=== PATIENT | female | born 1985 | race Caucasian/White ===

== ENCOUNTER 2017-01-30 11:04 | Outpatient (CLI) | payer OTHER ==
[2017-01-30 11:38] VITALS: BMI 29.5
== END 2017-01-30 11:32 | disposition home or self-care (01) ==
LOC: FBCOUT 11:04 → FBC 11:05 → FBCOUT 11:32
PROVIDERS: ATTEND Family Medicine
DX: O48.0 Post-term pregnancy (principal); Z3A.00 Weeks of gestation of pregnancy not specified

== ENCOUNTER 2017-01-31 01:45 | Inpatient (IN) | payer OTHER ==
[2017-01-31] MEDS ORDERED: OXYTOCIN IN LR 500 ML IV ONE ×2 (02:02→02:40)
[2017-01-31] MEDS ORDERED: IV START KIT ONE (02:08)
[2017-01-31] MEDS: LACTATED RINGERS 1,000 ML IV PRN ×2 (02:15→02:55)
[2017-01-31] MEDS ORDERED: CEFAZOLIN SODIUM 2 GRAM DUPLEX 50 ML IV ONE (02:29)
[2017-01-31 02:34] LABS: HEMATOCRIT 33.6 % (37.0-47.0); HEMOGLOBIN 10.9 gm/l (12.0-16.0); MEAN CELL VOLUME 77.6 fl (81.0-99.0); MEAN CORPUSCULAR HEMOGLOBIN 25.2 pg (27.0-31.0); MEAN CORPUSCULAR HGB CONC 32.4 g/dl (33.0-37.0); RED CELL DISTRIBUTION WIDTH 14.7 % (11.5-14.5)
[2017-01-31] MEDS ORDERED: MINERAL OIL 25 ML BOT ONE (02:39)
[2017-01-31] MEDS ORDERED: LIDOCAINE 1% (PRES FREE) 30 ML VIAL ONE (02:39)
[2017-01-31] MEDS ORDERED: OXYTOCIN 10 UNITS/ML VIAL ONE (02:39)
[2017-01-31] MEDS ORDERED: LIDOCAINE Viscous 2% 15 ML UDCUP ONE (02:39)
[2017-01-31] MEDS ORDERED: PUMP TUBING ONE (02:40)
[2017-01-31] MEDS ORDERED: EPIDURAL PUMP SET ONE (02:46)
[2017-01-31] MEDS ORDERED: FENTANYL/ROPIVACAINE EPIDURAL 250 ML EP ONE (02:47)
[2017-01-31] MEDS ORDERED: CEFAZOLIN SODIUM 2 GRAM DUPLEX 2 G in Premix (D5W) 50 ml 1 EACH IV ONE (03:00)
[2017-01-31] MEDS: FENTANYL/ROPIVACAINE EPIDURAL 250 ML EP SCH (03:12)
[2017-01-31] MEDS ORDERED: EPIDURAL PROCEDURE TRAY ONE (03:24)
[2017-01-31] MEDS ORDERED: ROPIVACAINE 0.5% 30 ML VIAL ONE (03:24)
[2017-01-31] MEDS ORDERED: SODIUM CHLORIDE 0.9% 500 ML IV PRN (03:45)
[2017-01-31] MEDS ORDERED: DIPHENHYDRAMINE HCL 50 MG/1 ML VIAL IV PRN (03:45)
[2017-01-31] MEDS ORDERED: METOCLOPRAMIDE HCL 5 MG/ML 2ML VIAL IV PRN (03:45)
[2017-01-31] MEDS ORDERED: NALBUPHINE HCL 20 MG/ML AMP IV PRN (03:45)
[2017-01-31] MEDS ORDERED: ONDANSETRON 4 MG/2ML 2 ML VIAL IV PRN (03:45)
[2017-01-31] MEDS ORDERED: NALOXONE HCL 0.4 MG/ML VIAL IV PRN (03:45)
[2017-01-31] MEDS ORDERED: EPHEDRINE SULFATE 50 MG/ML 1ML VIAL IV PRN (03:45)
[2017-01-31] MEDS ORDERED: LACTATED RINGERS 500 ML IV PRN (03:45)
[2017-01-31 03:49] VITALS: BMI 29.2
[2017-01-31] MEDS ORDERED: LIDOCAINE 1% (PRES FREE) 30 ML VIAL SUB-Q ONE (03:49)
[2017-01-31] MEDS: LACTATED RINGERS 1,000 ML IV SCH (04:06)
--- NOTE | 2017-01-31 04:31 | PCMAN ---
OB Admission Note - History : 3 Term: 2 : 0 Abortions (S&E): 0 Livin Gestational Age (weeks): 40 Days (#/7): 3 Admit Cervical Dilation:: 4.5 Admit Cervical Effacement (%):: 100 Admit Station:: -2 Admit Presentaton:: vertex Membrane Status: Intact Rupture (Date): 01/31/17 Rupture (Time): 04:17 Membranes Comment:: light mec Labor Onset (Date): 01/31/17 Labor Onset (Time): 01:15 Contractions: Yes Contraction Frequency:: 2-4 Heart Rate:: 125 Status:: category 2, mild decels w ctx EFW:: 8 Summary of Course:: uncomplicated - Labs Blood Type: B (+) positive Hct/Hgb:: 33.6/10.9 Rubella Status: Immune GBS Status: Positive Abnormal Labs: None - Physical Exam General: Afebrile, No Acute Distress Psych/Mental Status: Mood/Affect Appropriate Neurological: Grossly Intact, Alert, Oriented x 4, Normal Gait, Normal Speech, Cranial Nerves 3-12 Intact HEENT: Atraumatic, PERRLA, EOMI Lungs: Clear to Auscultation Bilaterally Cardiovascular: Regular Rate and Rhythm, No Murmur Abdomen: Normal Bowel Sounds Genitourinary: Normal Female Genitalia Extremities: Full ROM, No Edema Skin: Normal Color, No Rash - Problems (1) Post term over 40 weeks Status: Acute Code: O48.0Assessment/Plan: Active labor, expect (2) Depression affecting , antepartum Status: Acute Code: O99.340Assessment/Plan: stable on SSRI (3) Anemia affecting in third trimester Status: Acute Code: O99.013Assessment/Plan: Continue Iron following delivery
--- NOTE | 2017-01-31 06:35 | PCMDEL ---
Delivery Note - Labor 1st stage (hr/min):: 4 hr/38 min 2nd stage (hr/min):: 1 hr/21 min 3rd stage (hr/min):: 5 min Total (hr/min):: 6 hr/ 4 min Pushed (hr/min):: 1 hr/ 21 min - Delivery Delivery (Date): 01/31/17 Delivery (Time): 05:53 Gender: Male Presentation: Cephalic Position: OA Umbilical Cord: 3 Vessel Delayed Cord Clamping:: 2-3 min 1 Minute Total: 9 5 Minute Total: 9 Placenta:: intact EBL:: 350 ml Perineum:: 2nd degree perineal laceration Suture:: 2-0 chromic Anesthesia/Meds:: Epidural plus local for repair Length ROM:: 1 hr/36 min Comments:: Baby asynclitic accounting for long 2nd stage in multip, otherwise beautiful, normal delivery
[2017-01-31] MEDS ORDERED: BENZOCAINE/MENTHOL 60 APPLIC/BOT TP PRN (07:00)
[2017-01-31] MEDS ORDERED: LANOLIN 50 APPLIC/7G TUBE TP PRN (07:00)
[2017-01-31] MEDS: IBUPROFEN 800 MG TABLET PO SCH ×3 (07:58→22:08)
[2017-01-31] MEDS: DOCUSATE SODIUM 100 MG CAPSULE PO SCH ×2 (07:58→14:06)
[2017-01-31] MEDS ORDERED: CEFAZOLIN SODIUM 1 GRAM PREMIX 1 G in Premix (D5W) 50 ml 1 EACH IV SCH (11:00)
[2017-01-31] MEDS: ACETAMINOPHEN 325 MG TABLET PO PRN ×3 (11:44→22:08)
[2017-01-31] MEDS: OXYCODONE HCL 5 MG TABLET PO PRN ×3 (11:44→19:56)
[2017-02-01] MEDS: OXYCODONE HCL 5 MG TABLET PO PRN ×3 (00:31→09:54)
[2017-02-01] MEDS: ACETAMINOPHEN 325 MG TABLET PO PRN ×2 (03:00→09:54)
[2017-02-01] MEDS: IBUPROFEN 800 MG TABLET PO SCH ×4 (05:32→18:19)
[2017-02-01 07:00] LABS: HEMATOCRIT 26.6 % (37.0-47.0); HEMOGLOBIN 8.6 gm/l (12.0-16.0)
[2017-02-01] MEDS: DOCUSATE SODIUM 100 MG CAPSULE PO SCH ×2 (09:54→12:18)
--- NOTE | 2017-02-01 10:00 | PDOC44 ---
- Subjective Day: 1 Reports Pain Tolerable, Reports , Reports Lochia Light, Reports Tolerating Regular Diet, Denies Nausea, Denies Vomiting - Objective Temp Pulse Resp BP Pulse Ox 97.6 F 70 14 111/67 02/01/17 07:30 02/01/17 07:30 02/01/17 07:30 02/01/17 07:30 Lab Results 02/01/17 06:15 Hgb 8.6 L D Hct 26.6 L Current Medications Generic Name Dose Route Start Last Admin Trade Name Freq PRN Reason Stop Dose Admin Acetaminophen 325 - 650 mg 01/31/17 07:00 02/01/17 09:54 Tylenol PO 650 mg Q4H PRN Administration Pain (Mild) Benzocaine/Menthol 1 applic 01/31/17 07:00 01/31/17 08:32 Dermoplast TP 1 bot PRN PRN Administration Patient Comfort Docusate Sodium 100 mg 01/31/17 09:00 02/01/17 09:54 Colace PO 100 mg DAILY MARIA E Administration Emollient Ointment 1 applic 01/31/17 07:00 [id number] TP PRN PRN sore nipples Ropivacaine/Fentanyl/NS 250 mls @ 0 mls/hr 01/31/17 03:15 01/31/17 03:12 Fentanyl 2 Mcg/Ml + Ropivacaine 0.125% Ep Bag EP 10 mls/hr EPI MARIA E Administration Protocol Per Protocol Ibuprofen 800 mg 01/31/17 07:00 02/01/17 05:36 Motrin PO Not Given Q6H [facility] Oxycodone HCl 5 - 10 mg 01/31/17 07:00 02/01/17 09:54 Roxicodone PO 10 mg Q3H PRN Administration Pain (Severe) Oxycodone/Acetaminophen 1 - 2 tab 01/31/17 07:00 Percocet 5/325 PO Q4H PRN Pain (Moderate) Sodium Chloride 10 ml 01/31/17 02:02 01/31/17 07:17 Normal Saline 10ml Flush IV 10 ml PRN PRN Administration IV Flush - Physical Exam General: Afebrile, No Acute Distress Psych/Mental Status: Mood/Affect Appropriate Neurological: Grossly Intact, Alert, Oriented x 4, Normal Speech, Normal Reflexes, Cranial Nerves 3-12 Intact HEENT: Atraumatic, PERRLA, EOMI, Mucous membr. moist/pink Lungs: Clear to Auscultation Bilaterally Cardiovascular: Regular Rate and Rhythm, No Murmur Breast: Soft, No Nipples Cracked Fundus: Firm, Below Umbilicus Abdomen: Normal Bowel Sounds Genitourinary: Edema Lochia: Light Extremities: Full ROM, No Edema Skin: Normal Color, No Rash Wound NETWORK DEVELOPER: Well Approximated (perineal sutures) - Problems:Assessment/Plan (1) Depression affecting , antepartum Status: AcuteAssessment/Plan: stable on SSRI, will restart her Cymbalta (2) Anemia affecting in third trimester Status: AcuteAssessment/Plan: Continue Iron following delivery (3) Normal vaginal delivery Status: AcuteAssessment/Plan: stable, continue routine post care (4) Perineal laceration during delivery, condition Status: AcuteAssessment/Plan: sutures intact, mild swelling, continue normal neda care Disposition: Stable, Anticipate DC Home Tomorrow
[2017-02-01] MEDS: DULOXETINE HCL 60 MG CAP PO SCH (12:21)
[2017-02-01] MEDS: FENTANYL/ROPIVACAINE EPIDURAL 250 ML EP SCH (16:28)
[2017-02-01] MEDS: OXYCODONE/ACETAMINOPHEN 5/325 MG TABLET PO PRN ×2 (16:46→21:20)
[2017-02-02] MEDS: IBUPROFEN 800 MG TABLET PO SCH ×3 (00:02→07:25)
[2017-02-02] MEDS: FENTANYL/ROPIVACAINE EPIDURAL 250 ML EP SCH (07:25)
[2017-02-02] MEDS: LACTATED RINGERS 1,000 ML IV SCH (07:26)
[2017-02-02 09:17] VITALS: BP 112/66
[2017-02-02] MEDS: DOCUSATE SODIUM 100 MG CAPSULE PO SCH (09:18)
[2017-02-02] MEDS: DULOXETINE HCL 60 MG CAP PO SCH (09:18)
[2017-02-02] MEDS: OXYCODONE/ACETAMINOPHEN 5/325 MG TABLET PO PRN (09:18)
--- NOTE | 2017-02-02 10:41 | PDOC39B ---
Hospital Course: ADMIT DATE: 01/31/17 DISCHARGE DATE: 02/02/17 ADMISSION DIAGNOSES: Post term , GBS positive PROCEDURES: Spontaneous Vaginal Delivery, repair of second degree perineal laceration HISTORY OF PRESENT ILLNESS: 31 year old G3 T2 L2 at 40 weeks 3 days presenting with spontaneous labor. HOSPITAL COURSE: The patient had an uncomplicated delivery and post course. By day of discharge the patient is ambulating, eating, voiding, and passing flatus without difficulty. Pain is controlled and lochia is appropriate. She is [] - Physical Exam Vital Signs: Temp Pulse Resp BP Pulse Ox 98.2 F 69 16 112/66 02/02/17 09:12 02/02/17 09:12 02/02/17 09:12 02/02/17 09:12 General: Afebrile, No Acute Distress Psych/Mental Status: Mood/Affect Appropriate Neurological: Alert, Oriented x 4 HEENT: Atraumatic, PERRLA, EOMI, Mucous membr. moist/pink Lungs: Clear to Auscultation Bilaterally Cardiovascular: Regular Rate and Rhythm, No Murmur Breast: Soft, Nipples Intact Fundus: Firm, Midline, Below Umbilicus Abdomen: Normal Bowel Sounds Genitourinary: Edema (improved) Lochia: Light Extremities: Full ROM, No Edema Skin: Normal Color, Warm, Dry, Intact, No Rash Wound: Dressing Clean/Dry/Intact, Well Approximated - Discharge Diagnosis (1) Depression affecting , antepartum Status: AcuteAssessment/Plan: stable on SSRI, continue Cymbalta (2) Anemia affecting in third trimester Status: AcuteAssessment/Plan: Continue Iron at home. (3) Normal vaginal delivery Status: AcuteAssessment/Plan: stable, discharge home, FU 6 weeks (4) Perineal laceration during delivery, condition Status: AcuteAssessment/Plan: sutures intact, mild swelling has improved today, continue normal neda care at home - Discharge Plan Condition: Good Disposition: Home Instruction Forms: Vaginal Discharge Instructions Prescriptions: Oxycodone HCl [ROXICODONE 5 MG IR TABLET (SHF)] 5 - 10 mg PO Q3H PRN #20 PRN Reason: Pain (Severe)
== END 2017-02-02 13:56 | disposition home or self-care (01) | DRG 775 ==
LOC: FBCOUT 01:45 → FBC 01:45 → FBCOUT 02:04 → FBC 02:04
PROVIDERS: ADMIT Family Medicine; ATTEND Family Medicine
PROC: 10E0XZZ Delivery of Products of Conception, External Approach (ICD-10-PCS; principal; 2017-01-31)
PROC: 0KQM0ZZ Repair Perineum Muscle, Open Approach (ICD-10-PCS; 2017-01-31)
DX: O70.1 Second degree perineal laceration during delivery (principal); O77.0 Labor and delivery complicated by meconium in amniotic fluid; O48.0 Post-term pregnancy; Z3A.40 40 weeks gestation of pregnancy; O99.824 Streptococcus B carrier state complicating childbirth; O99.344 Other mental disorders complicating childbirth; F32.9 Major depressive disorder, single episode, unspecified; O99.02 Anemia complicating childbirth; D64.9 Anemia, unspecified; Z37.0 Single live birth